=== PATIENT | female | born 1965 | race Caucasian/White ===

== ENCOUNTER 2017-02-19 07:23 | Day surgery (SDC) | payer BC ==
[~2017-02-19] VITALS: Ht 144.8 cm; Wt 80.5 kg
--- NOTE | 2017-02-19 07:49 | HPN ---
Date/Time of Note Date/Time of Note DATE: 02/19/17 TIME: 07:48 Interval H&P Admission Note Pt. seen H&P reviewed: No system changes JONAS LEONARDO MD Feb 19, 2017 07:49
[2017-02-19] MEDS ORDERED: CARV25TA79 PO (08:15)
[2017-02-19] MEDS ORDERED: BENA20TA48 PO (08:15)
[2017-02-19] MEDS ORDERED: ASPI-664 PO (08:16)
[2017-02-19] MEDS ORDERED: ATOR40TA68 PO (08:16)
[2017-02-19] MEDS ORDERED: AMLO-147 PO (08:16)
[2017-02-19] MEDS ORDERED: CLOP75TA27 PO (08:18)
[2017-02-19] MEDS ORDERED: WARF5TAB72 PO (08:18)
[2017-02-19] MEDS ORDERED: WARF2TAB PO (08:18)
[2017-02-19] MEDS ORDERED: SEVE800T10 PO (08:21)
[2017-02-19] MEDS ORDERED: CALC667C PO (08:22)
[2017-02-19] MEDS ORDERED: CINA60TA PO (08:22)
[2017-02-19 08:41] VITALS: Ht 144.8 cm; Wt 80.5 kg
[2017-02-19 08:46] LABS: BASOPHILS % 0.2 % (0.0-2.0); EOSINOPHILS # 0.2 10^3/ul (0.0-0.5); EOSINOPHILS % 4.3 % (0.0-7.0); HEMATOCRIT 31.5 % (37.0-47.0); HEMOGLOBIN 10.7 g/dl (12.0-16.0); LYMPHOCYTES # 1.2 10^3/ul (0.8-2.9); LYMPHOCYTES % 26.5 % (15.0-51.0); MEAN CORPUSCULAR HEMOGLOBIN 33.2 pg (29.0-33.0); MEAN CORPUSCULAR VOLUME 97.8 fl (82.0-101.0); MEAN PLATELET VOLUME 10.2 fl (7.4-10.4); MONOCYTE # 0.3 10^3/ul (0.3-0.9); MONOCYTES % 5.8 % (0.0-11.0); NEUTROPHIL # 2.9 10^3/ul (1.6-7.5); PLATELET COUNT 152 10^3/UL (140-415); RED BLOOD COUNT 3.22 10^6/ul (4.20-5.40); RED CELL DISTRIBUTION WIDTH 12.4 % (11.5-14.5); WHITE BLOOD COUNT 4.6 10^3/ul (4.8-10.8)
[2017-02-19 08:55] VITALS: BP 178/74; PULSE 67; RESP 20
--- NOTE | 2017-02-19 09:01 | RADRPT ---
PROCEDURE: XR Chest. CLINICAL INDICATION: Preoperative TECHNIQUE: Single frontal view of the chest was obtained COMPARISON: None FINDINGS: The heart is enlarged. The thoracic aorta is calcified. The lungs are clear. There is a right-sided Perma-Cath in place. There is no pleural effusion or pneumothorax. RPTAT: AA IMPRESSION: Mild cardiomegaly. Calcified aorta consistent with atherosclerotic disease. .Bassam Mendoza MD, MD Date Time Electronically viewed and signed by .Bassam Mendoza MD, on 02/19/2017 09:01 .S/
[2017-02-19 09:04] LABS: INR 2.92; PROTIME 30.9 Sec (12.2-14.2); PT RATIO 2.4
[2017-02-19 09:06] LABS: ALBUMIN 3.9 g/dl (3.3-4.9); ALBUMIN/GLOBULIN RATIO 1.3; BILIRUBIN,INDIRECT 0.1 mg/dl (0-1.1); BILIRUBIN,TOTAL 0.1 mg/dl (0.2-1.3); TOTAL PROTEIN 6.9 g/dl (6.1-8.1)
[2017-02-19] MEDS ORDERED: THROMBIN 5000 UNIT VIAL ONE (09:06)
[2017-02-19] MEDS ORDERED: GELATIN SIZE 100 SPONGE ONE (09:06)
[2017-02-19] MEDS ORDERED: LIDOCAINE 1% (MPF) 30 ML INJ ONE (09:06)
[2017-02-19] MEDS ORDERED: BUPIVACAINE 0.25% (MPF) 30 ML INJ ONE (09:06)
[2017-02-19 09:07] LABS: CALCIUM 7.7 mg/dl (8.4-10.2); CREATININE 6.26 mg/dl (0.44-1.00); POTASSIUM 5.1 mmol/L (3.5-5.1)
--- NOTE | 2017-02-21 13:21 | RADRPT ---
Vent Rate: 65 bpm RR Interval: 0 msec [place] Interval: 188 msec QRS Duration: 88 msec QT Interval: 460 msec QTC Interval: 478 msec P-R-T [place]: 46 - 29 - 103 degrees Normal sinus rhythm Possible Anterior infarct , age undetermined ST amp; T wave abnormality, consider lateral ischemia Abnormal ECG Electronically Signed By: Kenyon Bates [id number]
== END 2017-02-19 10:12 | disposition home or self-care (01) ==
LOC: SDS 07:23
PROVIDERS: ATTEND Surgery
DX: N18.6 End stage renal disease (principal); E11.65 Type 2 diabetes mellitus with hyperglycemia; I12.0 Hypertensive chronic kidney disease with stage 5 chronic kidney disease or end stage renal disease; Z53.8 Procedure and treatment not carried out for other reasons
CPT/HCPCS: 71010; 80053; 82962; 85025; 85610; 85730; 93005

== ENCOUNTER 2017-10-29 06:33 | Emergency (ER) | END 2017-10-29 08:34 | disposition home or self-care (01) ==